=== PATIENT | female | born 1950 | race Caucasian/White ===

== ENCOUNTER 2018-08-28 08:37 | Emergency (ER) | payer MEDICARE, MEDICAID ==
[~2018-08-28] VITALS: Ht 154.9 cm; Wt 64.0 kg
[~2018-08-28 08:37] MED LIST: ALPR-475 PO; ALPR1TAB10 PO; AMLO10TA8 PO; BUTA1CAP57 PO; DIVA125T2 PO; METH5TAB2 PO; PRAV20TA2 PO; PRED5TAB25 PO
--- NOTE | 2018-08-28 09:28 | NUR ---
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
[2018-08-28 09:41] VITALS: BP 157/92
--- NOTE | 2018-08-28 10:04 | NUR ---
ASSUMED CARE FOR DISCHARGE ONLY Patient given discharge instructions and they have confirmed that they understand the instructions. Patient ambulatory with steady gait.
== END 2018-08-28 10:08 | disposition home or self-care (01) ==
LOC: ED 10:00
DX: S16.1XXA Strain of muscle, fascia and tendon at neck level, initial encounter (principal); S09.90XA Unspecified injury of head, initial encounter; Z88.6 Allergy status to analgesic agent; W22.8XXA Striking against or struck by other objects, initial encounter; Y93.89 Activity, other specified; Y92.009 Unspecified place in unspecified non-institutional (private) residence as the place of occurrence of the external cause; Y99.8 Other external cause status
CPT/HCPCS: 70450; 72125; 99284